=== PATIENT | female | born 1990 | race Caucasian/White ===

== ENCOUNTER 2017-03-08 10:23 | Observation (INO) | payer OTHER ==
[~2017-03-08] VITALS: Ht 165.1 cm; Wt 87.1 kg
[~2017-03-08 10:23] MED LIST: ACET-6134 PO; LABE100T20 PO
[2017-03-08 11:30] VITALS: BP 119/70
[2017-03-08] MEDS ORDERED: PREN-380 PO (16:53)
== END 2017-03-08 17:00 | disposition home or self-care (01) ==
LOC: MLD 10:23
PROVIDERS: ADMIT Obstetrics & Gynecology; ATTEND Obstetrics & Gynecology
DX: O40.3XX0 Polyhydramnios, third trimester, not applicable or unspecified (principal); Z3A.38 38 weeks gestation of pregnancy
CPT/HCPCS: 59025; 76805; 81000; G0378; Q0092

== ENCOUNTER 2017-03-14 18:37 | Inpatient (IN) | payer OTHER ==
[~2017-03-14] VITALS: Ht 165.1 cm; Wt 87.1 kg
[~2017-03-14 18:37] MED LIST changes: -ACET-6134 PO; -LABE100T20 PO; +PREN-380 PO
[2017-03-14] MEDS ORDERED: METHYLERGONOVINE 0.2 MG/ML AMP IM PRN (18:55)
[2017-03-14] MEDS ORDERED: OXYTOCIN 10 UNITS/ML VIAL IM SCH (18:55)
[2017-03-14] MEDS ORDERED: PROMETHAZINE 25 MG/ML VIAL IVP PRN (18:55)
[2017-03-14] MEDS ORDERED: CARBOPROST 250 MCG/ML AMP IM PRN (18:55)
[2017-03-14] MEDS ORDERED: NALBUPHINE HYDROCHLORIDE 10 MG/ML VIAL IVP PRN (18:55)
[2017-03-14] MEDS ORDERED: AMPICILLIN 2,000 MG in NACL 0.9% MINI-BAG PLUS 100 ML IV SCH (18:55)
[2017-03-14] MEDS: LACTATED RINGERS 1,000 ML IV SCH (19:47)
[2017-03-14 19:53] LABS: BASOPHILS % (AUTO) 0.5 % (0.0-2.0); EOSINOPHILS # (AUTO) 0.1 K/uL (0-0.4); EOSINOPHILS % (AUTO) 1.6 % (0.0-4.0); HEMATOCRIT 34.8 % (36-48); HEMOGLOBIN 11.1 g/dL (12.0-16.0); LYMPHOCYTES # (AUTO) 1.6 K/uL (2.5-16.5); LYMPHOCYTES % (AUTO) 19.1 % (20.5-51.1); MEAN CORPUSCULAR HEMOGLOBIN 26 pg (27-31); MEAN CORPUSCULAR HGB CONC 32 g/dL (33-37); MEAN CORPUSCULAR VOLUME 81 fL (80-94); MONOCYTES # (AUTO) 0.4 K/uL (0.8-1.0); MONOCYTES % (AUTO) 5.3 % (1.7-9.3); NEUTROPHILS # (AUTO) 6.4 K/uL (1.8-7.7); NEUTROPHILS % (AUTO) 73.5 % (42.2-75.2); PLATELET COUNT (AUTO) 217 K/uL (140-450); RED BLOOD CELL COUNT(AUTO) 4.28 MIL/uL (4.20-5.40); RED CELL DISTRIBUTION WIDTH 13.3 % (11.6-13.7); WHITE BLOOD COUNT (AUTO) 8.5 K/uL (4.8-10.8)
[2017-03-14 19:54] LABS: APPEARANCE,URINE CLEAR (CLEAR); BILIRUBIN,URINE NEGATIVE (NEGATIVE); BLOOD, URINE NEGATIVE (NEGATIVE); LEUKOCYTE ESTERASE ,URINE TRACE (NEGATIVE); NITRITE, URINE NEGATIVE (NEGATIVE); PROTEIN,URINE NEGATIVE (NEGATIVE); UGLUCOSE NEGATIVE (NEGATIVE); UROBILINOGEN,URINE 0.2 EU/dL (0.2 - 1)
[2017-03-14] MEDS ORDERED: AMPICILLIN 2,000 MG VIAL ONE (19:55)
[2017-03-14 19:56] LABS: ANION GAP 16.2 (8-16); CALCIUM 8.6 mg/dL (8.5-10.1); CARBON DIOXIDE 23.4 mmol/L (21-32); CREATININE 0.7 mg/dL (0.6-1.3); POTASSIUM 3.6 mmol/L (3.5-5.1)
[2017-03-14 19:58] LABS: COLOR,URINE YELLOW (YELLOW)
[2017-03-14 20:00] LABS: RBC,URINE 0-5 /HPF (0-5)
[2017-03-14] MEDS ORDERED: AMPICILLIN 1,000 MG in NACL 0.9% MINI-BAG PLUS 50 ML IV SCH (20:00)
[2017-03-14] MEDS ORDERED: OXYTOCIN 20 UNITS/LR PREMIX 1,000 ML IV SCH (20:00)
[2017-03-14] MEDS ORDERED: MISOPROSTOL 25 MCG TAB VG SCH (20:00)
[2017-03-14 20:01] LABS: BACTERIA,URINE 3+ /HPF (None Seen)
[2017-03-14 20:02] LABS: ALBUMIN 2.7 g/dL (3.4-5.0); TOTAL BILIRUBIN 0.3 mg/dL (0.0-1.0); TOTAL PROTEIN, SERUM 6.7 g/dL (6.4-8.2)
[2017-03-14] MEDS ORDERED: MISOPROSTOL 25 MCG TAB ONE (20:23)
[2017-03-14 21:02] VITALS: BP 121/62
[2017-03-15] MEDS ORDERED: OXYTOCIN 20 UNITS/LR PREMIX 1,000 ML IV ONE (03:26)
[2017-03-15] MEDS ORDERED: AMPICILLIN 1,000 MG VIAL ONE ×5 (04:03→16:44)
[2017-03-15] MEDS ORDERED: ROPIVACAINE 0.2%/NS PREMIX 250 ML EPI ONE (05:26)
[2017-03-15] MEDS: LACTATED RINGERS 1,000 ML IV SCH ×2 (05:32→06:55)
[2017-03-15] MEDS ORDERED: OXYTOCIN 10 UNITS/ML VIAL ONE (09:39)
[2017-03-15] MEDS ORDERED: LIDOCAINE 1% 50 ML ONE (09:40)
[2017-03-15] MEDS ORDERED: OXYTOCIN 20 UNITS/LR PREMIX 1,000 ML IV SCH ×2 (17:24→20:00)
[2017-03-15] MEDS ORDERED: MEASLES, MUMPS, AND RUBELLA 1 VIAL SQVAC PRN (17:25)
[2017-03-15] MEDS ORDERED: ACETAMINOPHEN 325 MG TAB PO PRN (17:25)
[2017-03-15] MEDS ORDERED: WITCH HAZEL 40 PAD PACKAGE TP PRN (17:25)
[2017-03-15] MEDS ORDERED: BENZOCAINE/MENTHOL 20%-0.5% 60 GM CAN TP PRN (17:25)
[2017-03-15] MEDS: oxyCODONE/APAP 5/325 MG 1 TAB TAB PO PRN (20:10)
[2017-03-16] MEDS: oxyCODONE/APAP 5/325 MG 1 TAB TAB PO PRN ×2 (01:29→09:40)
[2017-03-16 06:33] LABS: BASOPHILS # (AUTO) 0.1 K/uL (0.00-0.22); BASOPHILS % (AUTO) 0.7 % (0.0-2.0); EOSINOPHILS # (AUTO) 0.1 K/uL (0-0.4); EOSINOPHILS % (AUTO) 0.9 % (0.0-4.0); HEMATOCRIT 34.6 % (36-48); HEMOGLOBIN 11.4 g/dL (12.0-16.0); LYMPHOCYTES # (AUTO) 1.8 K/uL (2.5-16.5); LYMPHOCYTES % (AUTO) 18.7 % (20.5-51.1); MEAN CORPUSCULAR HEMOGLOBIN 26 pg (27-31); MEAN CORPUSCULAR HGB CONC 33 g/dL (33-37); MEAN CORPUSCULAR VOLUME 81 fL (80-94); MONOCYTES # (AUTO) 0.7 K/uL (0.8-1.0); MONOCYTES % (AUTO) 6.7 % (1.7-9.3); NEUTROPHILS # (AUTO) 7.2 K/uL (1.8-7.7); PLATELET COUNT (AUTO) 187 K/uL (140-450); RED CELL DISTRIBUTION WIDTH 13.4 % (11.6-13.7); WHITE BLOOD COUNT (AUTO) 9.9 K/uL (4.8-10.8)
--- NOTE | 2017-03-16 06:58 | NUR ---
PATIENT HAS BEEN SCREENED AND CATEGORIZED LOW NUTRITION RISK. PATIENT WILL BE SEEN WITHIN 7 DAYS OF ADMISSION. 03/21/17 MANPREET MARTINEZ MS, RDN
[2017-03-17] MEDS: oxyCODONE/APAP 5/325 MG 1 TAB TAB PO PRN (05:43)
[2017-03-17] MEDS ORDERED: ACET-2619 PO (16:59)
[2017-03-17] MEDS ORDERED: FERR325E14 PO (17:00)
== END 2017-03-17 17:15 | disposition home or self-care (01) | DRG 560 ==
LOC: MLD 18:37 → MFCC 03-15 20:35
PROVIDERS: ADMIT Obstetrics & Gynecology; ATTEND Obstetrics & Gynecology
PROC: 10E0XZZ Delivery of Products of Conception, External Approach (ICD-10-PCS; principal; 2017-03-15)
PROC: 10907ZC Drainage of Amniotic Fluid, Therapeutic from Products of Conception, Via Natural or Artificial Opening (ICD-10-PCS; 2017-03-15)
PROC: 3E0P7GC Introduction of Other Therapeutic Substance into Female Reproductive, Via Natural or Artificial Opening (ICD-10-PCS; 2017-03-15)
PROC: 0UQGXZZ Repair Vagina, External Approach (ICD-10-PCS; 2017-03-15)
PROC: 00HU33Z Insertion of Infusion Device into Spinal Canal, Percutaneous Approach (ICD-10-PCS; 2017-03-15)
PROC: 3E0R3CZ (ICD-10-PCS; 2017-03-15)
PROC: 3E0234Z Introduction of Serum, Toxoid and Vaccine into Muscle, Percutaneous Approach (ICD-10-PCS; 2017-03-15)
DX: O99.824 Streptococcus B carrier state complicating childbirth (principal); Z23 Encounter for immunization; Z83.3 Family history of diabetes mellitus; O71.4 Obstetric high vaginal laceration alone; Z37.0 Single live birth; Z3A.39 39 weeks gestation of pregnancy
CPT/HCPCS: 36415; 51702; 59200; 59409; 76815; 80053; 81001; 85025; 86592; 86886; 86900; 86901; 87086; 90715; J0290; J2001; J2590; J2795; J7120; Q0092

== ENCOUNTER 2018-08-14 15:09 | Observation (INO) | payer OTHER ==
[~2018-08-14] VITALS: Ht 165.1 cm; Wt 90.7 kg
[~2018-08-14 15:09] MED LIST changes: +ACET-2619 PO; +FERR325E14 PO
[2018-08-14 16:04] VITALS: BP 133/68
== END 2018-08-14 19:05 | disposition home or self-care (01) ==
LOC: MLD 15:09
PROVIDERS: ADMIT Obstetrics & Gynecology; ATTEND Obstetrics & Gynecology
DX: O47.1 False labor at or after 37 completed weeks of gestation (principal); O26.893 Other specified pregnancy related conditions, third trimester; R10.9 Unspecified abdominal pain; Z3A.38 38 weeks gestation of pregnancy
CPT/HCPCS: 76805; G0378; Q0092; 59025; 81000

== ENCOUNTER 2018-08-30 11:09 | Observation (INO) | payer OTHER ==
[~2018-08-30] VITALS: Ht 165.1 cm; Wt 90.7 kg
[~2018-08-30 11:09] MED LIST changes: -ACET-2619 PO
[2018-08-30] MEDS ORDERED: PREN-380 PO (11:25)
== END 2018-08-30 15:20 | disposition home or self-care (01) ==
LOC: MLD 11:09
PROVIDERS: ADMIT Obstetrics & Gynecology; ATTEND Obstetrics & Gynecology
DX: O26.893 Other specified pregnancy related conditions, third trimester (principal); R10.30 Lower abdominal pain, unspecified; Z3A.38 38 weeks gestation of pregnancy
CPT/HCPCS: 59025; 76815; 81000; G0378; Q0092

== ENCOUNTER 2018-09-05 13:11 | Inpatient (IN) | payer OTHER ==
[~2018-09-05] VITALS: Ht 165.1 cm; Wt 91.6 kg
[2018-09-05 14:59] VITALS: BP 115/78
[2018-09-05 21:24] LABS: BASOPHILS % (AUTO) 0.6 % (0.0-2.0); EOSINOPHILS % (AUTO) 0.4 % (0.0-4.0); HEMATOCRIT 37.4 % (36-48); LYMPHOCYTES # (AUTO) 1.1 K/uL (2.5-16.5); LYMPHOCYTES % (AUTO) 25.6 % (20.5-51.1); MEAN CORPUSCULAR HEMOGLOBIN 26 pg (27-31); MEAN CORPUSCULAR HGB CONC 32 g/dL (33-37); MONOCYTES # (AUTO) 0.3 K/uL (0.8-1.0); MONOCYTES % (AUTO) 6.9 % (1.7-9.3); NEUTROPHILS # (AUTO) 2.8 K/uL (1.8-7.7); NEUTROPHILS % (AUTO) 66.5 % (42.2-75.2); PLATELET COUNT (AUTO) 173 K/uL (140-450); RED BLOOD CELL COUNT(AUTO) 4.62 MIL/uL (4.20-5.40); RED CELL DISTRIBUTION WIDTH 14.5 % (11.6-13.7); WHITE BLOOD COUNT (AUTO) 4.3 K/uL (4.8-10.8)
[2018-09-05 21:53] LABS: ALBUMIN 2.6 g/dL (3.4-5.0); ANION GAP 13.8 (8-16); CARBON DIOXIDE 23.7 mmol/L (21-32); CREATININE 0.7 mg/dL (0.6-1.3); POTASSIUM 3.5 mmol/L (3.5-5.1); TOTAL BILIRUBIN 0.3 mg/dL (0.0-1.0)
[2018-09-05 23:08] LABS: BARBITURATE, URINE NEG. ng/ml (NEG <=200); BENZODIAZEPINE, URINE NEG. ng/mL (NEG <=200); CANNABINOID, URINE NEG. ng/mL (NEG <=50); COCAINE, URINE NEG. ng/mL (NEG <=300); OPIATE, URINE NEG. ng/mL (NEG <=2000); PHENCYCLIDINE SCREEN,URINE NEG. ng/mL (NEG <=25)
[2018-09-06] MEDS ORDERED: OXYTOCIN 20 UNITS in LACTATED RINGERS 1,000 ML IV SCH ×2 (03:00→17:40)
[2018-09-06] MEDS ORDERED: OXYTOCIN 20 UNITS/LR PREMIX 1,000 ML IV ONE (03:18)
[2018-09-06] MEDS: LACTATED RINGERS 1,000 ML IV SCH ×2 (03:29→11:56)
[2018-09-06 05:29] LABS: COLOR,URINE YELLOW (YELLOW)
[2018-09-06 05:30] LABS: BILIRUBIN,URINE NEGATIVE (NEGATIVE); BLOOD, URINE NEGATIVE (NEGATIVE); UGLUCOSE NEGATIVE (NEGATIVE)
[2018-09-06 05:32] LABS: LEUKOCYTE ESTERASE ,URINE 1+ (NEGATIVE); NITRITE, URINE NEGATIVE (NEGATIVE)
[2018-09-06 05:38] LABS: APPEARANCE,URINE SLIGHTLY HAZY (CLEAR)
[2018-09-06 05:42] LABS: RBC,URINE 0-5 (RARE) /HPF (0-5)
--- NOTE | 2018-09-06 06:08 | NUR ---
PATIENT HAS BEEN SCREENED AND CATEGORIZED LOW NUTRITION RISK. PATIENT WILL BE SEEN WITHIN 7 DAYS OF ADMISSION. 09/12/18 MANPREET MARTINEZ MS, RDN
[2018-09-06] MEDS ORDERED: BUPIVACAINE 0.125%/NS PREMIX 250 ML ONE (09:53)
[2018-09-06] MEDS ORDERED: BUPIVACAINE 0.125%/NS PREMIX 250 ML EPI SCH (10:10)
[2018-09-06] MEDS ORDERED: LIDOCAINE 1% 0 ML ONE (11:48)
[2018-09-06] MEDS ORDERED: OXYTOCIN 10 UNITS/ML VIAL ONE (11:49)
[2018-09-06] MEDS ORDERED: BISACODYL 5 MG TABEC PO PRN (17:40)
[2018-09-06] MEDS ORDERED: BENZOCAINE/MENTHOL 20%-0.5% 60 GM CAN TP PRN (17:40)
[2018-09-06] MEDS ORDERED: MEASLES, MUMPS, AND RUBELLA 1 VIAL SQVAC PRN (17:40)
[2018-09-06] MEDS ORDERED: ACETAMINOPHEN 325 MG TAB PO PRN (17:40)
[2018-09-06] MEDS: IBUPROFEN 600 MG TAB PO PRN (20:01)
[2018-09-06] MEDS ORDERED: INFLUENZA VIRUS VACCINE QUAD 0.5 ML SYR IMVAC PRN (22:00)
[2018-09-06] MEDS ORDERED: oxyCODONE/APAP 5/325 MG 1 TAB TAB ONE (22:33)
[2018-09-06] MEDS ORDERED: oxyCODONE/APAP 5/325 MG 1 TAB TAB PO SCH (23:00)
[2018-09-07] MEDS: oxyCODONE/APAP 5/325 MG 1 TAB TAB PO PRN ×2 (08:07→18:24)
[2018-09-07 08:49] LABS: BASOPHILS % (AUTO) 0.2 % (0.0-2.0); EOSINOPHILS % (AUTO) 0.5 % (0.0-4.0); HEMATOCRIT 36.5 % (36-48); HEMOGLOBIN 11.7 g/dL (12.0-16.0); LYMPHOCYTES # (AUTO) 1.6 K/uL (2.5-16.5); MEAN CORPUSCULAR HEMOGLOBIN 26 pg (27-31); MEAN CORPUSCULAR HGB CONC 32 g/dL (33-37); MEAN CORPUSCULAR VOLUME 81.6 fL (80-94); MONOCYTES # (AUTO) 0.4 K/uL (0.8-1.0); MONOCYTES % (AUTO) 5.4 % (1.7-9.3); NEUTROPHILS # (AUTO) 4.5 K/uL (1.8-7.7); NEUTROPHILS % (AUTO) 68.9 % (42.2-75.2); PLATELET COUNT (AUTO) 158 K/uL (140-450); RED BLOOD CELL COUNT(AUTO) 4.47 MIL/uL (4.20-5.40); RED CELL DISTRIBUTION WIDTH 14.5 % (11.6-13.7); WHITE BLOOD COUNT (AUTO) 6.5 K/uL (4.8-10.8)
[2018-09-08] MEDS: oxyCODONE/APAP 5/325 MG 1 TAB TAB PO PRN (02:30)
[2018-09-08] MEDS: IBUPROFEN 600 MG TAB PO PRN (09:57)
== END 2018-09-08 15:03 | disposition home or self-care (01) | DRG 560 ==
LOC: MLD 13:11 → OBSVTOIN 13:35 → MLD 13:40 → MFCC 09-06 23:58
PROVIDERS: ADMIT Obstetrics & Gynecology; ATTEND Obstetrics & Gynecology
PROC: 10E0XZZ Delivery of Products of Conception, External Approach (ICD-10-PCS; principal; 2018-09-05)
PROC: 0HQ9XZZ Repair Perineum Skin, External Approach (ICD-10-PCS; 2018-09-05)
PROC: 3E0R3BZ Introduction of Anesthetic Agent into Spinal Canal, Percutaneous Approach (ICD-10-PCS; 2018-09-05)
PROC: 00HU33Z Insertion of Infusion Device into Spinal Canal, Percutaneous Approach (ICD-10-PCS; 2018-09-05)
PROC: 10907ZC Drainage of Amniotic Fluid, Therapeutic from Products of Conception, Via Natural or Artificial Opening (ICD-10-PCS; 2018-09-05)
PROC: 3E033VJ Introduction of Other Hormone into Peripheral Vein, Percutaneous Approach (ICD-10-PCS; 2018-09-05)
DX: O77.0 Labor and delivery complicated by meconium in amniotic fluid (principal); O36.63X0 Maternal care for excessive fetal growth, third trimester, not applicable or unspecified; O70.0 First degree perineal laceration during delivery; Z37.0 Single live birth; Z3A.39 39 weeks gestation of pregnancy
CPT/HCPCS: 36415; 51702; 59409; 76815; 80053; 80305; 81001; 85025; 86592; 86886; 86900; 86901; 87086; G0378; J2001; J2590; J3490; J7120; Q0092